=== PATIENT | male | born 2000 | race African-American/Black ===

== ENCOUNTER 2018-03-05 15:53 | Emergency (ER) | payer OTHER ==
[~2018-03-05] VITALS: Ht 182.9 cm; Wt 66.2 kg
[2018-03-05 16:01] VITALS: BP 131/55
[2018-03-05] MEDS ORDERED: IBUPROFEN 600600 M1 PO (17:05)
== END 2018-03-05 17:20 | disposition home or self-care (01) ==
LOC: ER 15:53
DX: S83.8X1A Sprain of other specified parts of right knee, initial encounter (principal); S86.811A Strain of other muscle(s) and tendon(s) at lower leg level, right leg, initial encounter; W50.0XXA Accidental hit or strike by another person, initial encounter; Y92.89 Other specified places as the place of occurrence of the external cause; Y93.67 Activity, basketball; Y99.8 Other external cause status